=== PATIENT | male | born 1970 | race Caucasian/White ===

== ENCOUNTER 2017-01-10 19:30 | Outpatient (CLI) | payer OTHER | END 2017-01-10 19:31 | disposition home or self-care (01) | LOC: SLEEPLAB 19:30 | PROVIDERS: ATTEND Specialist | DX: G47.33 Obstructive sleep apnea (adult) (pediatric) (principal); G47.61 Periodic limb movement disorder; G47.10 Hypersomnia, unspecified; F32.9 Major depressive disorder, single episode, unspecified; E66.9 Obesity, unspecified; I10 Essential (primary) hypertension | CPT/HCPCS: 95811 ==

== ENCOUNTER 2018-06-17 14:08 | Outpatient (CLI) | payer OTHER | END 2018-06-17 14:09 | disposition home or self-care (01) | LOC: CTENTCT 14:08 | PROVIDERS: ATTEND Specialist | DX: J32.9 Chronic sinusitis, unspecified (principal) | CPT/HCPCS: 70486 ==

== ENCOUNTER 2018-10-25 13:18 | Outpatient (CLI) | payer OTHER ==
--- NOTE | 2018-10-28 14:42 | CT ---
CT coronary calcium scoring: DATE: 10/28/2018 HISTORY: 48-year-old male with chest pain, chest tightness, abnormal nuclear stress test. FINDINGS: Calcium score: Left Main: 0 Right coronary: 0 Left anterior descending colon 25 Left circumflex: 0 Posterior descendin Other: 0 Total Agatston score: 25 4 cm diameter of ascending thoracic aorta. No aneurysm. No moderate sized or large pericardial effusi on. No large hiatal hernia. Perihilar visualized portions of lungs appear to be grossly clear. IMPRESSION: Coronary calcium score of 25. Definite, at least mild atherosclerotic plaque. Risk of coronary artery disease: Mild or minimal coronary narrowings likely. The patient falls between the 50th and 75th percentile for males of this age group in this coronary calcium score.
== END 2018-10-25 13:19 | disposition home or self-care (01) ==
LOC: BICCT 13:18
PROVIDERS: ATTEND Family Medicine
DX: G47.33 Obstructive sleep apnea (adult) (pediatric) (principal); R07.89 Other chest pain; R94.39 Abnormal result of other cardiovascular function study; I25.10 Atherosclerotic heart disease of native coronary artery without angina pectoris
CPT/HCPCS: 75571